=== PATIENT | female | born 1950 | race Caucasian/White ===

== ENCOUNTER 2021-12-14 05:04 | Observation (INO) ==
--- NOTE | 2021-11-25 09:48 | History & Physical Report ---
Date of Service November 25, 2021 date of surgery: 12/14/21 Procedure: Left Total Knee Arthroplasty Surgeon: Franki Otero Assessment & Plan (1) Arthritis of knee, left: Plan: Further care discussed with patient and at this point in time has failed conservative measures and would like to proceed with a left total knee replacement. Plan on discharge will be home with home health physical therapy. DVT prophylaxis with TEDs, SCDs and will also place on aspirin 81 mg p.o. b.i.d. for a month postop. Patient will have follow up appointment in our office two weeks post op for staple/suture removal and re-evaluation. Patient otherwise has no other questions or concerns. The risks and benefits have been discussed including, but not limited to, risk of infection, nerve injury, stiffness, loss of motion, failure to improve, etc. Reasonable outcomes and options of treatment were discussed. An explanation of appropriate alternatives to the procedure that may be advantageous were discussed and their risks and benefits, as well as the risks and benefits of not proceeding with treatment. I offered to answer any additional inquiries concerning the treatment involved. All the patient's questions were answered. The patient is agreeable, understanding of the treatment plan and alternatives, and wishes to proceed with the treatment plan. History of Present Illness Chief Complaint: left knee pain Primary Care Provider: Leslie Owens Derrick Juarez is a 71 year old female who complains of left knee pain, presents for pre-op evaluation prior to a left total knee replacement. she complains of pain, decreased range of motion, instability and stiffness in her left knee. Currently the patient states that the symptoms are moderate-severe and is described as aching, sharp and throbbing. her symptoms are aggravated by ascending stairs, daily activities, first steps while awake walking. she has been treated with previous Euflexxa injections in the past without much relief. Allergies Allergy/AdvReac Type Severity Reaction Status Date / Time amoxicillin Allergy Unknown Rash Verified 06/02/21 15:23 banana Allergy Unknown Stomach Verified 06/03/21 16:22 ache diphenhydramine Allergy Unknown Itching Verified 06/03/21 16:22 [From Benadryl] latex Allergy Unknown Itching Verified 06/03/21 16:22 peanut Allergy Unknown Stomach Verified 06/03/21 16:22 ache wheat AdvReac Unknown Gastrointestinal Verified 06/03/21 16:22 Upset Home Medications Medication Instructions Recorded Confirmed Type cholecalciferol (vitamin D3) 25 25 mcg PO BID 09/26/19 06/02/21 History mcg (1,000 unit) tablet (Vitamin D3) cyanocobalamin (vitamin B-12) 500 500 mcg PO QAM 09/26/19 06/02/21 History mcg tablet (Vitamin B-12) glucosamine sulfate 1,000 mg 1,000 mg PO QAM 09/26/19 06/02/21 History capsule magnesium 250 mg tablet 250 mg PO QAM 09/26/19 06/02/21 History multivitamin 1 tab PO QAM 09/26/19 06/02/21 History omega-3 fatty acids 1,000 mg 1,000 mg PO QAM 09/26/19 06/02/21 History capsule (Fish Oil Concentrate) aspirin 81 mg tablet,delayed 81 mg PO QAM 06/02/21 06/02/21 History release oxybutynin chloride 5 mg tablet 5 mg PO Q12H PRN 06/02/21 06/02/21 History ropinirole 1 mg tablet 1 mg PO HS 06/02/21 06/02/21 History vitamins A,C,W-bfko-vlzmhy 14,320 1 cap PO QAM 06/02/21 06/02/21 History unit-226 mg-200 unit capsule (PreserVision AREDS) Past Med/Surg History Medical History Anemia Anemia GERD (gastroesophageal reflux disease) Hx MRSA infection 2013, [place], stomach Macular degeneration of both eyes Osteoarthritis Osteoporosis PVD (peripheral vascular disease) Groin stents > Previously on Xarelto, now on ASA daily Tremor Transient (associated with fatigue), follows with Dr. Rubin Peñaloza, reason for ropinorole Surgical History History of cataract surgery R/L History of esophagogastroduodenoscopy (EGD) History of procedure for peripheral vascular disease Groin stents Hx of colonoscopy Hx of skin graft Hx of tonsillectomy Family History Mother Family history of diabetes mellitus Social History Smoking Status: Never smoker Second Hand Exposure: Yes (SPOUSE SMOKED); Hx Alcohol Use: No Hx Substance Use: No Preferred Language: Slovak Communication Ability: Effective Hearing Ability: Use of Hearing Aid Circular Knitter Required: No Beliefs That Will Affect Care: None Current Living Situation: Alone current occupational status: retired Feels Safe at Home: Yes Assistive Devices: Denture - Lower, Glasses and Hearing Aid - Bilateral Review of Systems Review of Systems: All systems reviewed & are unremarkable except as noted in HPI & below Constitutional: no fever, no chills and no sweats Respiratory: no cough and no dyspnea Cardiovascular: no chest pain, no dyspnea and no orthopnea Gastrointestinal: no abdominal pain, no nausea and no vomiting Musculoskeletal: as per Subjective / HPI Physical Exam Physical Exam: HT: 5ft 2in WT: 47.9kg Constitutional: WD/WN, vitals as above no acute distress Respiratory: normal respiratory effort, lungs clear to auscultation no respiratory distress, no labored breathing and does not use accessory muscles Cardiovascular: RRR, no murmur, no edema Gastrointestinal (Abdomen): normal bowel sounds, soft, nontender, no hepatosp lenomegaly Musculoskeletal: Knee: + knee abnormal to inspection (LEFT KNEE: ), + effusion (+1 effusion), + limited ROM of knee (ROM 0/3/110), + knee ROM with crepitation, + joint line tenderness (medial joint line) and + Summer's sign positive; no deformity, no skin erythema, no ecchymosis, no valgus laxity, no varus laxity, anterior drawer test negative, Abbie's sign negative and pivot shift test negative Results & Data Results & Data ([facility]) Diagnostic Findings Left Knee X-ray: left knee series confirm advanced degenerative changes to the left knee, greatest medial compartments and patellofemoral joint, showing joint space narrowing, osteophyte formation and subchondral sclerosis. no acute bony pathology noted.
--- NOTE | 2021-12-09 13:10 | Anesthesiology Consultation ---
Date of Service December 09, 2021 Assessment & Plan (1) Encounter for pre-operative examination: - awaiting echo report if available and PCP final clearance as 06/2021 note indicates awaiting EKG. - cardiology pre-op clearance 06/21/2021: "...preoperative cardiac clearance...total knee arthroplasty on 07/05/2021...no active cardiovascular conditions...able to perform activities at or above 4 METS...do not recommend further invasive or noninvasive cardiovascular testing or procedures...no indication to hold aspirin from a CV standpoint, this will be left to the discretion of the surgeon...recommend restarting when bleed risk returns to b aseline...considered a low cardiovascular risk...anemia, she reports being started on an iron supplementation, this is under the direction of her PCP..." - COVID screening: Per derrickman helper on 12/09/2021: Travel screen negative, no known COVID-19 positive contacts or current COVID-19 related symptoms in past 2 weeks. Patient vaccinated. Surgeon arranging preop COVID testing, scheduled 12/12/2021. Awaiting results. Chart Review Chart Review: Pending: Refer to Additional Notes / Consult section and Patient NOT seen in Pre Admission Testing History Surgery Operation Date: 12/14/21 08:10 Proposed Procedures p Left Total Knee Arthroplasty - Franki Otero DO Height/Weight Height: 5 ft 2 in Weight: 46.72 kg Allergies Allergy/AdvReac Type Severity Reaction Status Date / Time amoxicillin Allergy Unknown Rash Verified 12/09/21 08:12 banana Allergy Unknown Stomach Verified 12/09/21 08:12 ache diphenhydramine Allergy Unknown Itching Verified 12/09/21 08:12 [From Benadryl] latex Allergy Unknown Itching Verified 12/09/21 08:12 peanut Allergy Unknown Stomach Verified 12/09/21 08:12 ache wheat AdvReac Unknown Gastrointestinal Verified 12/09/21 08:12 Upset Medications Home Medications Medication Instructions Recorded Confirmed Last Taken cholecalciferol (vitamin D3) 25 25 mcg PO BID 09/26/19 12/09/21 Unknown mcg (1,000 unit) tablet (Vitamin D3) cyanocobalamin (vitamin B-12) 500 500 mcg PO QAM 09/26/19 12/09/21 Unknown mcg tablet (Vitamin B-12) glucosamine sulfate 1,000 mg 1,000 mg PO QAM 09/26/19 12/09/21 Unknown capsule magnesium 250 mg tablet 250 mg PO QAM 09/26/19 12/09/21 Unknown multivitamin 1 tab PO QAM 09/26/19 12/09/21 Unknown omega-3 fatty acids 1,000 mg 1,000 mg PO QAM 09/26/19 12/09/21 Unknown capsule (Fish Oil Concentrate) aspirin 81 mg tablet,delayed 81 mg PO QAM 06/02/21 12/09/21 Unknown release oxybutynin chloride 5 mg tablet 5 mg PO Q12H PRN 06/02/21 12/09/21 Unknown vitamins A,C,E-unag-mtdrba 14,320 1 cap PO QAM 06/02/21 12/09/21 Unknown unit-226 mg-200 unit capsule (PreserVision AREDS) Past Medical History Medical History (Updated 12/09/21 @ 13:06 by Yuliya Barragan PA-C) Anemia GERD (gastroesophageal reflux disease) hx Hx MRSA infection 2012, [place], stool (per records) Macular degeneration of both eyes Nausea and vomiting after administration of anesthetic agent Osteoarthritis Osteoporosis PVD (peripheral vascular disease) Groin stents > Previously on Xarelto, now on ASA daily Scoliosis incidental, 05/2021 CXR Tremor Transient (associated with fatigue), follows with Dr. Rubin Peñaloza, reason for ropinorole Past Family History Family History Mother Family history of diabetes mellitus Other No family history of adverse response to anesthesia Past Surgical History Surgical History History of cataract surgery R/L History of esophagogastroduodenoscopy (EGD) History of procedure for peripheral vascular disease Groin stents Hx of colonoscopy Hx of skin graft (~2005) r/t leg ulcer Hx of tonsillectomy Social History Smoking Status: Never smoker Do You Dip or Chew Tobacco: No Hx Alcohol Use: No Hx Substance Use: No Testing Laboratory Results 11/24/2021 WBC: H/H: PLATELETS: SODIUM: 139 POTASSIUM: 3.9 CHLORIDE: 107 CO2: 28 BUN: 26 CREATININE: 0.5 GLUCOSE: 90 PT: 11.6 INR: 1 A1c: 5.4% Electrocardiogram Date: 06/21/21 Sinus rhythm, rate 62 bpm LAD Chest X-Ray Date: 06/06/21 FINDINGS: Incidental note is made of impression scoliosis of the thoracolumbar spine. Vascular stent projects over the lower abdomen. Mild cardiomegaly is unchanged. There is no evidence for pulmonary edema. Exaggerated kyphosis on lateral projection is noted. There is no consolidation. Bilateral upper lobe interstitial thickening with upper lobe volume loss and retraction of the aakash is unchanged. IMPRESSION: 1. No acute cardiopulmonary findings. 2. No change in appearance of the chest. Stable bilateral upper lobe interstitial thickening with volume loss with retraction of the aakash. This suggests underlying fibrosis.
[2021-12-14] MEDS ORDERED: METOCLOPRAMIDE HCL 10 MG TABLET PO SCH (06:00)
[2021-12-14] MEDS ORDERED: ACETAMINOPHEN 500 MG TAB PO SCH (06:00)
[2021-12-14] MEDS ORDERED: TRANEXAMIC ACID 1,000 MG **IV Intra-op IV SCH (06:00)
[2021-12-14] MEDS ORDERED: oxyCODONE HCL 10 MG TABCR (OxyCONTIN) PO SCH (06:00)
[2021-12-14] MEDS ORDERED: GABAPENTIN 300 MG CAP PO SCH (06:00)
[2021-12-14] MEDS ORDERED: LR 500ML BOLUS, THEN 15ML/HR IV SCH (06:00)
[2021-12-14] MEDS ORDERED: FAMOTIDINE 20 MG TAB PO SCH (06:00)
[2021-12-14] MEDS ORDERED: CeleBREX 200 MG CAP PO SCH (06:00)
[2021-12-14] MEDS ORDERED: VANCOMYCIN HCL 750 MG in SODIUM CHLORIDE 0.9% 250 ML IV SCH (06:00)
[2021-12-14] MEDS ORDERED: DEXAMETHASONE SOD INJ 4 MG/ML VIAL ONE (06:24)
[2021-12-14] MEDS ORDERED: EPINEPHrine INJ 1 MG/ML AMP ONE (06:24)
[2021-12-14] MEDS ORDERED: BUPIVACAINE 0.5 % 5 MG/1 ML PF 10ML VIAL ONE (06:24)
[2021-12-14] MEDS ORDERED: BUPIVACAINE 0.25% 30 ML VIAL ONE (06:24)
[2021-12-14] MEDS ORDERED: MIDAZOLAM HCL 1 MG/ML 2ML VIAL ONE (06:41)
[2021-12-14] MEDS ORDERED: fentaNYL citrate 100 MCG/2 ML VIAL ONE (06:42)
[2021-12-14] MEDS ORDERED: TRANEXAMIC ACID / 0.7% NACL 1,000 MG/100 ML BAG IV ONE (06:55)
--- NOTE | 2021-12-14 07:08 | History & Physical Bridge Note ---
Date of Service December 14, 2021 History & Physical Bridge Note I have examined the patient, reviewed the History & Physical and in the interval since the performance of the History & Physical I have noted the following changes of clinical significance: no changes noted
[2021-12-14] MEDS: TRANEXAMIC ACID 1,000 MG **IV Pre-op IV SCH ×2 (07:09→08:25)
[2021-12-14] MEDS ORDERED: ORTHO JOINT ANESTHETIC ONE (07:09)
[2021-12-14] MEDS ORDERED: PROPOFOL IV EMULSION 10 MG/ML 20 ML VIAL IV ONE (07:33)
[2021-12-14] MEDS ORDERED: ONDANSETRON INJ 2 MG/ML 2 ML VIAL ONE (07:33)
[2021-12-14] MEDS ORDERED: LIDOCAINE 2% 2 ML VIAL/AMP(20MG/ML) INFIL ONE (07:33)
[2021-12-14] MEDS ORDERED: fentaNYL citrate 100 MCG/2 ML VIAL IV PRN (07:34)
[2021-12-14] MEDS ORDERED: ePHEDrine sulfate 50 MG/ML AMP IV PRN (07:34)
[2021-12-14] MEDS ORDERED: ONDANSETRON INJ 2 MG/ML 2 ML VIAL IV PRN ×2 (07:34→10:11)
[2021-12-14] MEDS ORDERED: ATROPINE SULFATE 0.1 MG/ML 10ML SYR IV PRN (07:34)
[2021-12-14] MEDS: ROPIVACAINE 0.5% HCL/PF 150 MG, BUPIVACAINE 0.75% MPF 20 ML, EPINEPHrine 30MG/30ML (OR ... INSTIL SCH ×2 (07:53→07:56)
--- NOTE | 2021-12-14 08:19 | Operative Report ---
Post Operative Report Pre & Post Diagnosis Operation Date: 12/14/21 07:00 Pre-Op Diagnosis: arthritis of left knee Post-Op Diagnosis: arthritis of left knee I identified the patient and participated in the time-out.: Yes Procedure Operation Date: 12/14/21 07:00 Actual Procedures p Left Total Knee Arthroplasty(Left) utilizing [place] [facility] [facility] journey 2 patient matched total knee arthroplasty size femur 4 tibia 3 insert 11 mm polypatella 26 round Franki Otero DO Surgeon Franki Otero DO Purchase Price Analyst Pritesh GOYAL Estimated Blood Loss 5 Findings Consistent with Post-Op Diagnosis Patient presents with severe end-stage tricompartmental degenerative joint disease varus alignment subchondral sclerosis marginal osteophytes eburnated [id number] with a moderate to large effusion Specimens Bone and cartilage Drains Medium bore Hemovac Anesthesia Type MAC Spinal Regional Complications none Disposition Accompanied Patient To Recovery: No Disposition: Recovery Room Indications Patient presents after failed attempted conservative management with physical therapy anti-inflammatories relative rest activity modification corticosteroid injection viscosupplementation the above intraoperative findings were noted Description of Procedure After proper prepping and draping of the left lower extremity anterior midline incision was made over the region of the extensor extensor mechanism after meticulous hemostasis was obtained and maintained in subcutaneous tissues a medial parapatellar incision was made The patella was subluxed lateralward the medial lateral gutter were cleaned from any hypertrophic synovitis and scar tissue of the distal femoral block was placed and the distal femoral osteotomy cut was made subsequently the chamfers anterior and posterior osteotomy cuts were made utilizing the 4-in-1 block the tibia was subsequently subluxed anteriorward medial and ateral meniscal remnants were excised in their entirety remnants of the anterior and posterior cruciate ligaments were excised in their entirety excellent exposure of the proximal tibia was obtained the tibial osteotomy guide was placed on the proximal tibial osteotomy cut was made once again the knee was irrigated with copious amounts of sterile saline solution the patella was subsequently everted lateralward thickened scar tissue around the patella was removed the patella was subsequently cut utilizing a freehand technique and was drilled prepared for final preparation and placement of patella socially flexion-extension gaps were checked and the equal and symmetric trials were placed to the appropriate femoral and tibial trials with poly-spacer being placed for equal flexion and extension gaps and full range of motion including extension to 0 and flexion to 140 the trial components after having been taken to recovery range of motion was subsequently removed meticulous hemostasis was obtained and maintained subsequently a knee block injection of joint cocktail including ropivacaine 0.5% 150 mg. Bupivacaine 0.5% epinephrine 1-200,030 mL's toradol 30 mg dexamethasone 4 mg ketamine 10 mg clonidine 100 micrograms normal saline solution 30 mg was infiltrated into the soft tissues of the posterior knee medial lateral gutters and periosteal synovium special attention was paid to protect neurovascular structures at all times subsequently trial components having been removed the knee was irrigated with sterile saline solution. debris was removed the proximal tibia was subsequently prepared and was made ready for the placement of the tibial component tibial component was also cemented and tamped into position the femoral component was subsequently placed and cemented in the position the patellar component was subsequently cemented in position because hemostasis once again obtained and maintained wound having been thoroughly irrigated with debridement and debridement lavage was per formed as well as a medial parapatellar incision closed with #1 Vicryl in interrupted fashion subcutaneous was closed with #2 Vicryl skin was closed with skin clips. PA-C was necessary for prepping and drapping as well as wound closure of deep fascia Sub cutaneous tissue and skin and was necessary for the case. A sterile compressive dressing was placed patient was taken to recovery in stable condition of report dictated by Branden I attest to the content of the Intraoperative Record and any orders documented therein. Any exceptions are noted below.Due to the complex nature of the procedure, the entire surgery was performed with the operational assistance of JAY JAY Sanchez The physician's assistant, under direct supervision, was involved in the actual performance of all aspects of the surgical procedure including hemostasis, tissue retraction and incision, instrument management, patient positioning, and wound closure. I attest to the content of the Intraoperative Record and any orders documented therein. Any exceptions are noted below.
--- NOTE | 2021-12-14 09:12 | XRay Report ---
XR knee LT 1 or 2V routine CLINICAL HISTORY: Surgical Post Op. Status post total knee replacement COMPARISON STUDY: No previous studies for comparison. TECHNIQUE: 2 left knee views FINDINGS: The patient is status post total knee replacement. The prosthetic components are in anatomi c alignment with no acute abnormality seen. Air is present within the soft tissues from the procedure . Drains are present in the soft tissues anteriorly. IMPRESSION: 1. Status post total knee replacement. ACT 112: Negative or not required by law. Electronically signed by: Alok John M.D. 12/14/2021 9:11 AM
--- NOTE | 2021-12-14 10:01 | Anesthesiology Progress Note ---
Date of Service December 14, 2021 Anesthesia Post Procedure Vital Signs Vital Signs: Temp Pulse Pulse Resp BP Pulse Ox 12/14/21 09:50 36.7 C 90 15 133/73 93 12/14/21 09:40 36.7 C 59 L 20 110/68 94 12/14/21 09:30 58 L 48 H 110/64 95 12/14/21 09:20 64 14 111/62 100 12/14/21 09:10 60 14 109/70 100 12/14/21 09:00 59 L 16 119/75 100 12/14/21 08:51 36.7 C 89 16 122/74 98 12/14/21 05:56 36.7 C 71 20 134/81 99 Transfer of Care Handoff Completed per policy Notes Mental Status: alert / awake / arousable Patient Amnestic to Procedure: Yes Nausea / Vomiting: adequately controlled Pain: adequately controlled Airway Patency, RR, SpO2: stable & adequate BP & HR: stable & adequate Hydration State: stable & adequate Neuraxial Anesthesia: was administered and sensory block is resolving Anesthetic Complications: no major complications apparent and Pt Satisfied with anesthetic care
[2021-12-14] MEDS ORDERED: METOCLOPRAMIDE HCL INJ 5 MG/ML 2 ML VIAL IV PRN (10:11)
[2021-12-14] MEDS ORDERED: bisacodyL 10 MG SUPP PR PRN (10:11)
[2021-12-14] MEDS ORDERED: oxyCODONE HCL IR 5 MG TAB (IMMEDIATE RELEASE) PO PRN (10:11)
[2021-12-14] MEDS ORDERED: MAGNESIUM HYDROXIDE SUSP 30 ML UDC PO PRN (10:11)
[2021-12-14] MEDS ORDERED: NALOXONE HCL 0.4 MG/1 ML VIAL/CARP IV PRN (10:11)
[2021-12-14] MEDS ORDERED: HYDROmorphone INJ 1 MG/ML SYRINGE IV PRN (10:11)
[2021-12-14] MEDS ORDERED: MULTIVITAMIN TAB PO SCH (10:11)
[2021-12-14] MEDS ORDERED: OXYBUTYNIN CHLORIDE 5 MG TAB PO PRN (10:11)
[2021-12-14] MEDS: SODIUM CHLORIDE 0.9% 1000ML 1,000 ML IV SCH ×2 (12:05→21:49)
[2021-12-14] MEDS: ASPIRIN 81 MG ECTAB PO SCH ×2 (12:06→21:50)
[2021-12-14] MEDS: MAGNESIUM OXIDE 400 MG TAB PO SCH (12:06)
[2021-12-14] MEDS: DOCUSATE SODIUM 100 MG CAP PO SCH ×2 (12:06→21:50)
[2021-12-14] MEDS: CEROVITE ADV FORMULA TAB PO SCH (12:07)
[2021-12-14] MEDS: CHOLECALCIFEROL 1,000 UNITS 25 MCG TAB PO SCH ×2 (12:07→21:50)
[2021-12-14] MEDS: KETOROLAC TROMETHAMINE 15 MG/ML VIAL IV SCH ×3 (12:07→23:54)
[2021-12-14] MEDS: CYANOCOBALAMIN (B-12) 500 MCG TABLET PO SCH (12:07)
[2021-12-14] MEDS: ACETAMINOPHEN 500 MG TAB PO SCH ×2 (14:48→21:50)
[2021-12-14] MEDS: CLINDAMYCIN 600 MG in DEXTROSE 5% 50 ML IV SCH ×2 (14:49→21:49)
[2021-12-14] MEDS ORDERED: COUGH DROP (SUGAR FREE) LOZ 24 LOZ/1 BOX BUCCAL ONE (17:50)
[2021-12-14] MEDS: SENNA 8.6 MG TAB PO SCH (21:50)
[2021-12-15] MEDS: ACETAMINOPHEN 500 MG TAB PO SCH ×4 (05:36→22:35)
[2021-12-15] MEDS: KETOROLAC TROMETHAMINE 15 MG/ML VIAL IV SCH (05:36)
[2021-12-15 06:24] LABS: Hematocrit (blood only) 31.9 % (37-47); Hemoglobin 10.8 g/dL (12.0-16.0); Mean Corpuscular Hemoglobin 31.7 pg (25-34); Mean Corpuscular Hgb Conc 33.9 g/dL (32-36); Mean Corpuscular Volume 93.5 fL (80-100); Mean Platelet Volume 9.1 fL (7.4-10.4); Platelet Count 211 K/uL (130-400); RDW Coefficient of Variation 12.8 % (11.5-14.5); RDW Standard Deviation 43.9 fL (36.4-46.3); Red Blood Count 3.41 M/uL (4.2-5.4); White Blood Count 9.32 K/uL (4.8-10.8)
[2021-12-15 06:51] LABS: BUN Creatinine Ratio 30.4 (10-20); Calcium 8.3 mg/dl (8.5-10.1); Creatinine Clr Calc Pharmacy 65.2 ml/min; Est GFR (Non-African American) 93.2 ml/min; Potassium 4.1 mmol/L (3.5-5.1)
[2021-12-15] MEDS: CHOLECALCIFEROL 1,000 UNITS 25 MCG TAB PO SCH ×2 (07:52→20:37)
[2021-12-15] MEDS: CYANOCOBALAMIN (B-12) 500 MCG TABLET PO SCH (07:52)
[2021-12-15] MEDS: CEROVITE ADV FORMULA TAB PO SCH (07:52)
[2021-12-15] MEDS: ASPIRIN 81 MG ECTAB PO SCH ×2 (07:52→20:37)
[2021-12-15] MEDS: DOCUSATE SODIUM 100 MG CAP PO SCH ×2 (07:52→20:38)
[2021-12-15] MEDS: MAGNESIUM OXIDE 400 MG TAB PO SCH (07:52)
--- NOTE | 2021-12-15 09:04 | Orthopedic Progress Note ---
Date of Service December 15, 2021 Assessment & Plan (1) Arthritis of knee, left: Plan: Postop day 1 status post left total knee arthroplasty. PT/OT protocols. Weightbearing as tolerated. DVT prophylaxis-aspirin p.o. twice daily, SCDtali, CARON reid. Pain management as written. DC planning-patient is planning for home health services upon discharge. Admission and Anticipated Discharge Date Admission Date: December 14, 2021 Subjective POD 1 Patient sitting up in bed awake and alert. She has finished eating her breakfast. She currently has no complaints. Pain is controlled. She states that she had what she felt like a muscle cramp in her axilla that reached over to the left breast. It happened only for a brief moment. She denies radiation down her left arm. Denies radiation up into her neck or chin. Denies shortness of breath. Denies N/V. No other complaints at this time. Physical Exam Physical Exam: Dressings are clean, dry, and intact. Calves are soft and nontender. Neurovascular is intact. Toes are mobile. She has good dorsifle xion and plantarflexion of the left knee. Hemovac drainage was 75 mL from the previous shift. Results & Data ([facility]) Vital Signs (Past 12 Hours) Vital Signs Temp Pulse Resp BP Pulse Ox 12/15/21 07:49 36.7 C 62 16 131/70 96 12/15/21 07:39 36.8 C 65 16 133/70 97 12/15/21 03:25 36.7 C 64 16 111/61 93 12/14/21 21:57 36.3 C L 62 16 110/66 95 Laboratory Results Laboratory Results WBC 9.32 K/uL (4.8-10.8) 12/15/21 06:11 RBC 3.41 M/uL (4.2-5.4) L 12/15/21 06:11 Hgb 10.8 g/dL (12.0-16.0) L 12/15/21 06:11 Hct 31.9 % (37-47) L 12/15/21 06:11 MCV 93.5 fL (80-100) 12/15/21 06:11 MCH 31.7 pg (25-34) 12/15/21 06:11 MCHC 33.9 g/dL (32-36) 12/15/21 06:11 RDW Std Deviation 43.9 fL (36.4-46.3) 12/15/21 06:11 RDW Coeff of Jose 12.8 % (11.5-14.5) 12/15/21 06:11 Plt Count 211 K/uL (130-400) 12/15/21 06:11 MPV 9.1 fL (7.4-10.4) 12/15/21 06:11 Sodium 139 mmol/L (136-145) 12/15/21 06:11 Potassium 4.1 mmol/L (3.5-5.1) 12/15/21 06:11 Chloride 109 mmol/L (98-107) H 12/15/21 06:11 Carbon Dioxide 24 mmol/L (21-32) 12/15/21 06:11 Anion Gap 6 (3-11) 12/15/21 06:11 BUN 17 mg/dl (6-23) 12/15/21 06:11 Creatinine 0.56 mg/dl (0.6-1.2) L 12/15/21 06:11 Est Cr Clr Drug Dosing 65.2 ml/min 12/15/21 06:11 Est GFR ( Amer) 108.0 ml/min 12/15/21 06:11 Est GFR (Non-Af Amer) 93.2 ml/min 12/15/21 06:11 BUN/Creatinine Ratio 30.4 (10-20) H 12/15/21 06:11 Glucose 97 mg/dl (70-99(Fasting)) 12/15/21 06:11 Calcium 8.3 mg/dl (8.5-10.1) L 12/15/21 06:11 SARS-CoV-2, RNA, NAAT NEGATIVE (NEGATIVE) 12/14/21 Unknown Blood Type O Positive 12/14/21 05:36 Antibody Screen NEGATIVE 12/14/21 05:36 Impressions Knee X-Ray 12/14/21 08:58 XR knee LT 1 or 2V routine CLINICAL HISTORY: Surgical Post Op. Status post total knee replacement COMPARISON STUDY: No previous studies for comparison. TECHNIQUE: 2 left knee views FINDINGS: The patient is status post total knee replacement. The prosthetic components are in anatomic alignment with no acute abnormality seen. Air is present within the soft tissues from the procedure. Drains are present in the soft tissues anteriorly. IMPRESSION: 1. Status post total knee replacement. ACT 112: Negative or not required by law. Electronically signed by: Alok John M.D. 12/14/2021 9:11 AM
[2021-12-15] MEDS: CeleBREX 200 MG CAP PO SCH (20:37)
[2021-12-15] MEDS: SENNA 8.6 MG TAB PO SCH (20:38)
[2021-12-16] MEDS: ACETAMINOPHEN 500 MG TAB PO SCH ×2 (06:29→14:13)
[2021-12-16] MEDS: CeleBREX 200 MG CAP PO SCH (09:15)
[2021-12-16] MEDS: DOCUSATE SODIUM 100 MG CAP PO SCH (09:15)
[2021-12-16] MEDS: CHOLECALCIFEROL 1,000 UNITS 25 MCG TAB PO SCH (09:15)
[2021-12-16] MEDS: ASPIRIN 81 MG ECTAB PO SCH (09:15)
--- NOTE | 2021-12-16 09:15 | Orthopedic Progress Note ---
Date of Service December 16, 2021 Assessment & Plan (1) Arthritis of knee, left: Plan: Postop day 2 status post left total knee arthroplasty. PT/OT protocols. Weightbearing as tolerated. DVT prophylaxis-aspirin p.o. twice daily, SCDs, CARON reid. Pain management as written. DC planning-patient is planning for home health services upon discharge. Plan for dc to home today. Admission and Anticipated Discharge Date Admission Date: December 14, 2021 Subjective POD 2 Pt sitting up in chair. She has finished her breakfast. No complaints this AM. P ain controlled. Physical Exam Physical Exam: Incision benign. Calves soft, NT. NV intact. Toes mobile. HV drain removed. Results & Data ([facility]) Vital Signs (Past 12 Hours) Vital Signs Temp Pulse Resp BP Pulse Ox 12/16/21 07:18 36.6 C 71 14 119/77 96 12/15/21 22:37 36.6 C 67 16 134/85 94
[2021-12-16] MEDS: CYANOCOBALAMIN (B-12) 500 MCG TABLET PO SCH (09:16)
[2021-12-16] MEDS: MAGNESIUM OXIDE 400 MG TAB PO SCH (09:16)
[2021-12-16] MEDS: CEROVITE ADV FORMULA TAB PO SCH (09:16)
--- NOTE | 2021-12-16 12:28 | Discharge Summary ---
Date of Service date of surgery: 12/14/21 date of discharge: 12/16/21 Admission HPI Per Admitting Provider Ann is a 71 year old female who complains of left knee pain, presents for pre- op evaluation prior to a left total knee replacement. she complains of pain, decreased range of motion, instability and stiffness in her left knee. Currently the patient states that the symptoms are moderate-severe and is described as aching, sharp and throbbing. her symptoms are aggravated by ascending stairs, daily activities, first steps while awake walking. she has been treated with previous Euflexxa injections in the past without much relief. Principal Diagnosis left knee arthritis Discharge Exam Musculoskeletal NVDI, calf SNT, negative fawn sign. DP palpable, able to wiggle toes/ankle movement without difficulty. dressing clean dry and intact. expected post- operative bruising noted. Discharge Data Allergies Allergy/AdvReac Type Severity Reaction Status Date / Time amoxicillin Allergy Unknown Rash Verified 12/14/21 05:53 banana Allergy Unknown Stomach Verified 12/14/21 05:53 ache diphenhydramine Allergy Unknown Itching Verified 12/14/21 05:53 [From Benadryl] latex Allergy Unknown Itching Verified 12/14/21 05:53 peanut Allergy Unknown Stomach Verified 12/14/21 05:53 ache lactose AdvReac Intermediate Verified 12/14/21 10:33 wheat AdvReac Unknown Gastrointestinal Verified 12/14/21 05:53 Upset Procedures Performed Operation Date: 12/14/21 07:00 Actual Procedures p Left Total Knee Arthroplasty(Left) - Franki Otero DO Ordered Studies 12/14/21 05:00 US - OR guided needle placemen Routine Hospital Course (1) Arthritis of knee, left: Postop day 2 status post left total knee arthroplasty. PT/OT protocols. Weightbearing as tolerated. DVT prophylaxis-aspirin p.o. twice daily, CARON Mae. Pain management as written. DC planning-patient is planning for home health services upon discharge. Plan for dc to home today. Total Time Total Time Spent Total Time Spent (In Minutes): 20 Discharge Plan Discharge Items Patient Disposition: Home - Home Health Services Reason For Visit: Left Knee Osteoarthritis Discharge Diagnosis: left total knee replacement Activity: Per Instructions section Lifting: Wait until after follow-up appointment Weightbearing: Left weightbearing Weightbearing Comment: WBAT with walker left leg Non-emergency contact: Surgeon Call non-emergency contact if: you have any medication questions, your pain is not controlled, your temperature is above 101, your wound has increased redness, your wound has increased drainage and your wound pain has increased Follow-up/Referrals: Franki Otero DO [Surgeon] - 12/26/21 12:00 pm (APPT WITH [facility]) Leslie Meza D.OJose D [Primary Care Provider] - Diet: Regular Addtl Attending Provider Instructions: ACTIVITY RECOMMENDATIONS: SELF CARE INSTRUCTIONS AFTER TOTAL KNEE REPLACEMENT A. You may need to continue a physical therapy program after discharge from the hospital. There are several options available to you. Your doctor will assist you in selecting the best one for you. 1. An out-patient facility 2 to 3 times a week for therapy or home therapy. 2. Continue working on all exercises taught to you in the hospital. Your goals should be to increase bending of your knee to 90 degrees and beyond and to fully straighten your knee. B. You may progress at your own pace from walking with a walker or crutches to a cane; then to no assistive devices. C. Make walking a part of your daily routine. Be up as much as comfortable with rest periods throughout the day. Rest with leg elevation is very important. Use the ice wrap frequently for the first 3-4 weeks. D. There are no restrictions on activities. You may ride in a car, shop, pa rticipate in goldsmith apprentice and all social activities. E. Wear the long elastic stockings (CARON hose) 20 hours a day for 2 weeks after surgery. They can be removed several times a day for laundering and for a bath. F. You may shower, no tub baths until cleared by your doctor. SPECIAL CARE INSTRUCTIONS: VERY IMPORTANT TO READ AND REVIEW A. There are a few signs you need to watch for after you are home. Call [facility] if you notice any of the followin. Increased severe knee pain. Some pain is expected especially when you exercise. 2. Increased swelling in your leg or knee; pain or swelling of the calf muscle in either lower leg. 3. Any fluid drainage from the incision. 4. Shortness of breath or chest pain. B. Please call [facility] at if you have any concerns or questions about your operation or recovery. The doctor or his nurse will return your call promptly. C. You must take antibiotics before dental work, bladder, bowel or other surgery. Your doctor will provide you with a permanent care to carry describing this precaution. IMPORTANT: * REMEMBER TO TAKE ASPIRIN, 81 MG, TWICE DAILY FOR 4 WEEKS UNLESS OTHERWISE DIRECTED. THIS IS YOUR BLOOD THINNER. * HIGH RISK PATIENTS MAY BE PRESCRIBED A STRONGER BLOOD THINNER. THIS WILL BE PROVIDED AT DISCHARGE. * CALL IF INCREASED PAIN, REDNESS, DRAINAGE OR FEVER GREATER THAT 101. * WEAR CARON HOSE 20 HOURS PER DAY FOR 2 WEEKS. * DERMABOND Prineo- This is a mesh tape dressing that is covered with glue. It should remain in place until the incision is properly healed, usually 10-14 days. This dressing is designed to naturally slough off. You may trim the excess mesh tape as it peels off. Incision may be briefly wet in a shower. Dry immediately by blotting with a clean, dry towel. Do not bath or swim until instructed by your doctor. Do not scratch, rub, or pick at the dressing. Do not apply any topical ointments or lotions until dressing is completely removed and/or instructed by your doctor. There may be a small piece of suture material at one end of your incision. Do not pull or trim this. If it is bothersome or catching on clothing, you may cover it with a band-aid. * Keep your wound covered for at least the first week. It's ok to shower starting tomorrow. No tub baths. Do not soak the wound. No direct shower pressure to the wound. Do not scrub the wound. Use mild soaps to clean around the wound. IF INCISION IS LEAKING THROUGH DRESSING, CALL THE OFFICE . FOLLOW UP VISIT: If appointment is not already scheduled: Please call [facility] to make a follow-up appointment for 2 weeks after your surgery at . Pending Studies at Discharge: No Stand-Alone Forms: [email or web address], Smoking Cessation Medications and DC Order Prescriptions: New celecoxib [Celebrex] 200 mg Capsule 200 mg PO BID 14 Days Qty: 28 RF: 0 aspirin 81 mg Tablet,Delayed Release (Dr/Ec) 81 mg PO BID 30 Days Qty: 60 RF: 0 acetaminophen [Tylenol Extra Strength] 500 mg Tablet 1,000 mg PO Q8 14 Days Qty: 84 RF: 0 polyethylene glycol 3350 [Miralax] 17 gram powder in packet 17 g PO DAILY PRN (Reason: constipation) Qty: 5 RF: 0 oxycodone 5 mg Tablet 5 mg PO Q4H MDD 6 PRN (Reason: pain) Qty: 30 RF: 0 sulfamethoxazole-trimethoprim [Bactrim DS] 800-160 mg tablet 1 tab PO Q12H Qty: 14 RF: 0 Continued multivitamin Tablet 1 tab PO QAM RF: 0 cyanocobalamin (vitamin B-12) [Vitamin B-12] 500 mcg Tablet 500 mcg PO QAM RF: 0 magnesium 250 mg Tablet 250 mg PO QAM RF: 0 glucosamine sulfate 1,000 mg Capsule 1,000 mg PO QAM RF: 0 cholecalciferol (vitamin D3) [Vitamin D3] 25 mcg (1,000 unit) Tablet 25 mcg PO BID RF: 0 oxybutynin chloride 5 mg Tablet 5 mg PO Q12H PRN (Reason: urinary symptoms) RF: 0 PreserVision AREDS [id number] rokk-eg-dear Capsule 1 cap PO QAM RF: 0 Discontinued omega-3 fatty acids [Fish Oil Concentrate] 1,000 mg Capsule 1,000 mg PO QAM RF: 0 aspirin [Aspir-81] 81 mg Tablet,Delayed Release (Dr/Ec) 81 mg PO QAM RF: 0 Discharge Orders: Discharge Order (Routine); Ordered 12/16/21 Ordered By: Jose Andrade/Other Patient Handouts: DVT Post Op Prevention Admission Data Admit Date/Time: 12/14/21 08:58 Attending Provider: Franki Otero Admit Provider: Franki Otero Primary Care Provider: Leslie Meza Other Interventions: Discharge Summary Assessment (RN) Last Done: 12/16/21 10:26
== END 2021-12-16 15:48 | disposition home health service (06) ==
LOC: ASU 05:04 → 3E 05:04